=== PATIENT | male | born 1950 | race Two or more races ===

== ENCOUNTER 2021-01-14 13:26 | Inpatient (IN) | payer OTHER ==
[~2021-01-14] VITALS: Ht 162.6 cm; Wt 82.1 kg
[2021-01-14] MEDS ORDERED: IV NS 0.9% 1,000 ML BAG IV ONE ×2 (13:30→15:00)
[2021-01-14] MEDS ORDERED: IBUP-1955 PO (14:01)
[2021-01-14] MEDS ORDERED: ASPI-1420 PO (14:01)
[2021-01-14] MEDS ORDERED: METF-442 PO (14:01)
[2021-01-14] MEDS ORDERED: MELO-107 PO (14:01)
[2021-01-14] MEDS ORDERED: SIMV-46 PO (14:01)
[2021-01-14] MEDS ORDERED: LOSA25TA27 PO (14:01)
[2021-01-14 14:12] LABS: BASOPHILS # (AUTO) 0.1 /CMM (0.0-0.2); BASOPHILS % (AUTO) 0.6 % (0.0-2.0); EOSINOPHILS % (AUTO) 0.8 % (0.0-6.0); HEMATOCRIT 38 % (39-51); HEMOGLOBIN 12.6 g/dL (13.5-17.5); LYMPHOCYTES # (AUTO) 0.4 /CMM (0.8-4.8); LYMPHOCYTES % (AUTO) 3.9 % (20.0-44.0); MEAN CORPUSCULAR HGB CONC 33 g/dl (31.0-36.0); MEAN CORPUSCULAR VOLUME 88 fL (80-96); MONOCYTES # (AUTO) 0.5 /CMM (0.1-1.30); MONOCYTES % (AUTO) 5.5 % (2.0-12.0); NEUTROPHILS # (AUTO) 8.3 /CMM (1.8-8.9); NEUTROPHILS % (AUTO) 89.2 % (43.0-81.0); PLATELET COUNT (AUTO) 216 /CMM (150-450); RED BLOOD CELL COUNT(AUTO) 4.35 MIL/uL (4.5-6.0); WHITE BLOOD COUNT (AUTO) 9.3 K/uL (4.3-11.0)
[2021-01-14 14:19] LABS: CALCIUM, SERUM 8.4 mg/dL (8.5-10.1); CARBON DIOXIDE 20 mmol/L (21-32); CHLORIDE 104 mmol/L (98-107); CREATININE 1.3 mg/dL (0.6-1.3); GLUCOSE 185 mg/dL (74-106); POTASSIUM 4.6 mmol/L (3.5-5.1); SODIUM SERUM 138 mmol/L (136-145); UREA NITROGEN, BLOOD 22 mg/dL (7-18)
[2021-01-14 14:22] LABS: ALANINE AMINOTRANSFERASE 29 U/L (12-78); ALBUMIN 3.2 g/dL (3.4-5.0); ALKALINE PHOSPHATASE 132 U/L (46-116); ASPARTATE AMINOTRANSFERASE 30 U/L (15-37); BILIRUBIN,DIRECT 0.1 mg/dL (0.0-0.2); BILIRUBIN,TOTAL 0.5 mg/dL (0.2-1.0); TOTAL PROTEIN, SERUM 7.7 g/dL (6.4-8.2)
[2021-01-14 14:56] LABS: BILIRUBIN,URINE NEGATIVE (NEGATIVE); COLOR,URINE YELLOW (YELLOW); LEUKOCYTE ESTERASE ,URINE NEGATIVE (NEGATIVE); NITRITE, URINE NEGATIVE (NEGATIVE); PH,URINE 7.5 (5.0-8.0); PROTEIN,URINE NEGATIVE (NEGATIVE); UGLUCOSE 100 MG/DL mg/dL (NEGATIVE); UROBILINOGEN,URINE 0.2 EU/dL (0.2)
[2021-01-14] MEDS ORDERED: LEVOFLOXACIN 750 MG /D5W 150ML 150 ML IV ONE ×2 (15:00→15:04)
[2021-01-14] MEDS ORDERED: ACETAMINOPHEN ES 500 MG TABLET ONE (15:25)
[2021-01-14] MEDS ORDERED: ACETAMINOPHEN ES 500 MG TABLET PO ONE (15:30)
[2021-01-14 17:36] VITALS: BP 92/56
[2021-01-14] MEDS ORDERED: DEXTROSE 50%-WATER 50 ML DISP.SYRIN IV PRN (19:30)
[2021-01-14] MEDS ORDERED: ONDANSETRON HCL/PF 4 MG/2 ML VIAL IVP PRN (19:30)
[2021-01-14] MEDS ORDERED: Z GUARD REMEDY 2 OZ OINT TP PRN (19:30)
[2021-01-14 20:00] VITALS: BP 129/81
[2021-01-14] MEDS: ACETAMINOPHEN 325 MG TABLET PO PRN (20:24)
[2021-01-14] MEDS: CEFTRIAXONE 1 G in IV D5W 50 ML IV SCH (20:25)
[2021-01-14] MEDS: ENOXAPARIN SODIUM 40 MG/0.4 ML DISP.SYRIN SQ SCH ×2 (20:26→20:46)
[2021-01-14] MEDS: VANCOMYCIN HCL 0.75 GM in IV D5W 250 ML IV SCH (21:12)
[2021-01-14] MEDS: IV NS 0.9% 1,000 ML IV PRN (21:31)
[2021-01-14] MEDS: INSULIN REGULAR, HUMAN 100 UNIT/ML 3 ML VIAL SQ PRN (21:51)
[2021-01-14] MEDS: BLOOD SUGAR DIAGNOSTIC 1 EACH STRIP IN SCH (21:51)
[2021-01-15] VITALS: BP 116/62
[2021-01-15] MEDS: ACETAMINOPHEN 325 MG TABLET PO PRN ×2 (02:35→19:41)
[2021-01-15 04:00] VITALS: BP 95/62
[2021-01-15 06:39] LABS: BASOPHILS % (AUTO) 0.4 % (0.0-2.0); HEMATOCRIT 36 % (39-51); HEMOGLOBIN 12.3 g/dL (13.5-17.5); LYMPHOCYTES # (AUTO) 0.5 /CMM (0.8-4.8); LYMPHOCYTES % (AUTO) 8.8 % (20.0-44.0); MEAN CORPUSCULAR HGB CONC 34 g/dl (31.0-36.0); MEAN CORPUSCULAR VOLUME 86 fL (80-96); MONOCYTES # (AUTO) 0.4 /CMM (0.1-1.30); MONOCYTES % (AUTO) 7.2 % (2.0-12.0); NEUTROPHILS # (AUTO) 5.2 /CMM (1.8-8.9); NEUTROPHILS % (AUTO) 83.6 % (43.0-81.0); PLATELET COUNT (AUTO) 182 /CMM (150-450); RED BLOOD CELL COUNT(AUTO) 4.21 MIL/uL (4.5-6.0); WHITE BLOOD COUNT (AUTO) 6.2 K/uL (4.3-11.0)
[2021-01-15 07:06] LABS: ALBUMIN 2.9 g/dL (3.4-5.0); BILIRUBIN,TOTAL 0.7 mg/dL (0.2-1.0); CALCIUM, SERUM 7.9 mg/dL (8.5-10.1); CREATININE 1.2 mg/dL (0.6-1.3); MAGNESIUM 1.6 mg/dL (1.8-2.4); PHOSPHORUS 2.9 mg/dL (2.5-4.9); POTASSIUM 3.7 mmol/L (3.5-5.1); TOTAL PROTEIN, SERUM 7.5 g/dL (6.4-8.2)
[2021-01-15 07:19] LABS: THYROID STIMULATING HORMONE 0.811 uIU/mL (0.358-3.74)
[2021-01-15 08:00] VITALS: BP 90/50
[2021-01-15] MEDS: BLOOD SUGAR DIAGNOSTIC 1 EACH STRIP IN SCH ×4 (08:18→21:43)
[2021-01-15] MEDS: INSULIN REGULAR, HUMAN 100 UNIT/ML 3 ML VIAL SQ PRN ×4 (08:43→21:14)
[2021-01-15] MEDS: LOSARTAN POTASSIUM 25 MG TABLET PO SCH (08:58)
[2021-01-15] MEDS: VANCOMYCIN HCL 0.75 GM in IV D5W 250 ML IV SCH ×2 (08:59→20:23)
[2021-01-15] MEDS: Magnesium 1GM/D5W 100ML PREMIX 100 ML IV SCH ×2 (11:41→12:57)
[2021-01-15 12:00] VITALS: BP 102/59
[2021-01-15 16:00] VITALS: BP 138/77
[2021-01-15] MEDS: SIMVASTATIN 20 MG TABLET PO SCH (17:42)
[2021-01-15] MEDS: CEFTRIAXONE 1 G in IV D5W 50 ML IV SCH (19:35)
[2021-01-15] MEDS: IV NS 0.9% 1,000 ML IV PRN (19:36)
[2021-01-15 20:00] VITALS: BP 109/56
[2021-01-15] MEDS: ENOXAPARIN SODIUM 40 MG/0.4 ML DISP.SYRIN SQ SCH (20:27)
[2021-01-16] VITALS: BP 94/60
[2021-01-16 04:00] VITALS: BP 99/64
[2021-01-16 07:30] LABS: CREATININE 1.1 mg/dL (0.6-1.3); POTASSIUM 3.9 mmol/L (3.5-5.1)
[2021-01-16 08:00] VITALS: BP 108/64
[2021-01-16] MEDS: INSULIN REGULAR, HUMAN 100 UNIT/ML 3 ML VIAL SQ PRN ×4 (08:33→22:12)
[2021-01-16] MEDS: BLOOD SUGAR DIAGNOSTIC 1 EACH STRIP IN SCH ×4 (09:11→22:08)
[2021-01-16] MEDS: VANCOMYCIN HCL 0.75 GM in IV D5W 250 ML IV SCH ×2 (09:14→21:09)
[2021-01-16] MEDS: LOSARTAN POTASSIUM 25 MG TABLET PO SCH (09:15)
[2021-01-16 12:00] VITALS: BP 133/84
[2021-01-16] MEDS: IV NS 0.9% 1,000 ML IV PRN (14:45)
[2021-01-16 16:00] VITALS: BP 148/78
[2021-01-16] MEDS: SIMVASTATIN 20 MG TABLET PO SCH (17:59)
[2021-01-16] MEDS: ACETAMINOPHEN 325 MG TABLET PO PRN (19:32)
[2021-01-16 20:00] VITALS: BP 110/72
[2021-01-16] MEDS: CEFTRIAXONE 1 G in IV D5W 50 ML IV SCH (20:16)
[2021-01-16] MEDS: ENOXAPARIN SODIUM 40 MG/0.4 ML DISP.SYRIN SQ SCH (21:00)
[2021-01-17] MEDS: IV NS 0.9% 1,000 ML IV PRN (05:31)
[2021-01-17 05:59] LABS: BASOPHILS % (AUTO) 0.8 % (0.0-2.0); EOSINOPHILS % (AUTO) 1.3 % (0.0-6.0); HEMATOCRIT 36 % (39-51); LYMPHOCYTES # (AUTO) 0.6 /CMM (0.8-4.8); LYMPHOCYTES % (AUTO) 13.8 % (20.0-44.0); MEAN CORPUSCULAR HGB CONC 34 g/dl (31.0-36.0); MEAN CORPUSCULAR VOLUME 86 fL (80-96); MONOCYTES # (AUTO) 0.4 /CMM (0.1-1.30); MONOCYTES % (AUTO) 9.2 % (2.0-12.0); NEUTROPHILS # (AUTO) 3.5 /CMM (1.8-8.9); NEUTROPHILS % (AUTO) 74.9 % (43.0-81.0); PLATELET COUNT (AUTO) 165 /CMM (150-450); RED BLOOD CELL COUNT(AUTO) 4.16 MIL/uL (4.5-6.0); WHITE BLOOD COUNT (AUTO) 4.7 K/uL (4.3-11.0)
[2021-01-17 06:30] LABS: CALCIUM, SERUM 7.8 mg/dL (8.5-10.1); MAGNESIUM 1.8 mg/dL (1.8-2.4); PHOSPHORUS 2.9 mg/dL (2.5-4.9); POTASSIUM 3.9 mmol/L (3.5-5.1)
[2021-01-17] MEDS: INSULIN REGULAR, HUMAN 100 UNIT/ML 3 ML VIAL SQ PRN ×4 (06:40→21:45)
[2021-01-17] MEDS: BLOOD SUGAR DIAGNOSTIC 1 EACH STRIP IN SCH ×4 (06:41→21:40)
[2021-01-17] MEDS: ACETAMINOPHEN 325 MG TABLET PO PRN (07:05)
[2021-01-17 08:00] VITALS: BP 111/61
[2021-01-17] MEDS: LOSARTAN POTASSIUM 25 MG TABLET PO SCH (08:49)
[2021-01-17] MEDS: VANCOMYCIN HCL 0.75 GM in IV D5W 250 ML IV SCH ×2 (08:50→21:18)
[2021-01-17 12:00] VITALS: BP 114/68
[2021-01-17 16:00] VITALS: BP 124/75
[2021-01-17] MEDS: SIMVASTATIN 20 MG TABLET PO SCH (17:33)
[2021-01-17] MEDS: CEFTRIAXONE 1 G in IV D5W 50 ML IV SCH (19:49)
[2021-01-17 20:00] VITALS: BP 144/76
[2021-01-17] MEDS: ENOXAPARIN SODIUM 40 MG/0.4 ML DISP.SYRIN SQ SCH (21:39)
[2021-01-18] VITALS: BP 144/76
[2021-01-18] MEDS: IV NS 0.9% 1,000 ML IV PRN ×2 (01:55→17:27)
[2021-01-18 04:00] VITALS: BP 127/68
[2021-01-18 06:20] LABS: BASOPHILS % (AUTO) 0.6 % (0.0-2.0); EOSINOPHILS % (AUTO) 3.5 % (0.0-6.0); HEMATOCRIT 36 % (39-51); LYMPHOCYTES % (AUTO) 21.9 % (20.0-44.0); MEAN CORPUSCULAR HGB CONC 34 g/dl (31.0-36.0); MEAN CORPUSCULAR VOLUME 86 fL (80-96); MONOCYTES # (AUTO) 0.4 /CMM (0.1-1.30); MONOCYTES % (AUTO) 10.1 % (2.0-12.0); NEUTROPHILS # (AUTO) 2.8 /CMM (1.8-8.9); NEUTROPHILS % (AUTO) 63.9 % (43.0-81.0); PLATELET COUNT (AUTO) 183 /CMM (150-450); RED BLOOD CELL COUNT(AUTO) 4.16 MIL/uL (4.5-6.0); WHITE BLOOD COUNT (AUTO) 4.3 K/uL (4.3-11.0)
[2021-01-18 06:44] LABS: CALCIUM, SERUM 8.2 mg/dL (8.5-10.1); CREATININE 0.9 mg/dL (0.6-1.3); MAGNESIUM 1.8 mg/dL (1.8-2.4); POTASSIUM 3.8 mmol/L (3.5-5.1)
[2021-01-18] MEDS: BLOOD SUGAR DIAGNOSTIC 1 EACH STRIP IN SCH ×4 (07:58→21:58)
[2021-01-18 08:00] VITALS: BP 143/82
[2021-01-18] MEDS: VANCOMYCIN HCL 0.75 GM in IV D5W 250 ML IV SCH ×2 (09:03→21:10)
[2021-01-18] MEDS: LOSARTAN POTASSIUM 25 MG TABLET PO SCH (09:04)
[2021-01-18] MEDS: INSULIN REGULAR, HUMAN 100 UNIT/ML 3 ML VIAL SQ PRN ×4 (09:04→22:00)
[2021-01-18 12:00] VITALS: BP 138/80
[2021-01-18 16:00] VITALS: BP 143/77
[2021-01-18] MEDS: SIMVASTATIN 20 MG TABLET PO SCH (17:27)
[2021-01-18 20:00] VITALS: BP 123/71
[2021-01-18] MEDS: CEFTRIAXONE 1 G in IV D5W 50 ML IV SCH (20:10)
[2021-01-18] MEDS: ENOXAPARIN SODIUM 40 MG/0.4 ML DISP.SYRIN SQ SCH (21:11)
[2021-01-19] VITALS: BP 123/71
[2021-01-19 04:00] VITALS: BP 136/74
[2021-01-19 06:24] LABS: BASOPHILS % (AUTO) 0.6 % (0.0-2.0); EOSINOPHILS % (AUTO) 3.8 % (0.0-6.0); HEMATOCRIT 34 % (39-51); HEMOGLOBIN 11.4 g/dL (13.5-17.5); LYMPHOCYTES # (AUTO) 0.9 /CMM (0.8-4.8); LYMPHOCYTES % (AUTO) 21.3 % (20.0-44.0); MEAN CORPUSCULAR HGB CONC 34 g/dl (31.0-36.0); MEAN CORPUSCULAR VOLUME 85 fL (80-96); MONOCYTES # (AUTO) 0.5 /CMM (0.1-1.30); MONOCYTES % (AUTO) 11.6 % (2.0-12.0); NEUTROPHILS # (AUTO) 2.7 /CMM (1.8-8.9); NEUTROPHILS % (AUTO) 62.7 % (43.0-81.0); PLATELET COUNT (AUTO) 189 /CMM (150-450); RED BLOOD CELL COUNT(AUTO) 3.94 MIL/uL (4.5-6.0); WHITE BLOOD COUNT (AUTO) 4.3 K/uL (4.3-11.0)
[2021-01-19 06:44] LABS: CALCIUM, SERUM 8.3 mg/dL (8.5-10.1); CREATININE 0.8 mg/dL (0.6-1.3); MAGNESIUM 1.9 mg/dL (1.8-2.4); PHOSPHORUS 3.1 mg/dL (2.5-4.9); POTASSIUM 3.7 mmol/L (3.5-5.1)
[2021-01-19] MEDS: BLOOD SUGAR DIAGNOSTIC 1 EACH STRIP IN SCH ×2 (07:30→12:25)
[2021-01-19 08:00] VITALS: BP 133/82
[2021-01-19 08:41] VITALS: BP 133/82
[2021-01-19] MEDS: LOSARTAN POTASSIUM 25 MG TABLET PO SCH (08:41)
[2021-01-19] MEDS: VANCOMYCIN HCL 0.75 GM in IV D5W 250 ML IV SCH (08:44)
[2021-01-19] MEDS: INSULIN REGULAR, HUMAN 100 UNIT/ML 3 ML VIAL SQ PRN ×2 (08:48→12:32)
[2021-01-19] MEDS ORDERED: VANC1PIG IV (09:21)
[2021-01-19] MEDS ORDERED: CEFT1FRO2 IV (09:21)
[2021-01-19] MEDS ORDERED: LINE600T13 PO (09:43)
[2021-01-19] MEDS ORDERED: LEVO500T90 PO (09:43)
== END 2021-01-19 14:27 | disposition home health service (06) | DRG 871 ==
LOC: ER 13:28 → TELE1 16:04 → MEDSG1 01-15 08:58
PROVIDERS: ADMIT Nurse Practitioner Acute Care; ATTEND Nurse Practitioner Acute Care
DX: A41.01 Sepsis due to Methicillin susceptible Staphylococcus aureus (principal); N17.0 Acute kidney failure with tubular necrosis; J18.9 Pneumonia, unspecified organism; E87.2 Acidosis; N39.0 Urinary tract infection, site not specified; E78.5 Hyperlipidemia, unspecified; E86.0 Dehydration; I10 Essential (primary) hypertension; Z88.0 Allergy status to penicillin; Z79.82 Long term (current) use of aspirin; Z79.84 Long term (current) use of oral hypoglycemic drugs; Z79.899 Other long term (current) drug therapy; D64.9 Anemia, unspecified; Z20.822 Contact with and (suspected) exposure to COVID-19; M19.90 Unspecified osteoarthritis, unspecified site; B96.89 Other specified bacterial agents as the cause of diseases classified elsewhere; E11.65 Type 2 diabetes mellitus with hyperglycemia; E61.1 Iron deficiency; E66.9 Obesity, unspecified; Z68.31 Body mass index [BMI] 31.0-31.9, adult; E88.09 Other disorders of plasma-protein metabolism, not elsewhere classified
CPT/HCPCS: 36415; 71045-TC; 80048-TC; 80053-TC; 80061-TC; 80076-TC; 80202-TC; 82962-TC; 83540-TC; 83605-TC; 83735-TC; 84100-TC; 84443-TC; 84484-TC; 85025-TC; 85730-TC; 87040-TC; 87081-TC; 87086-TC; 87186-TC; 93307-TC; C9803; G0378; J0696; J1650; J1815; J1956; J3370; J3475; J7030; J7050; J7060; U0003

== ENCOUNTER 2021-08-08 18:19 | Emergency (ER) | payer OTHER, MEDICAID ==
[~2021-08-08] VITALS: Ht 170.2 cm; Wt 81.6 kg
[~2021-08-08 18:19] MED LIST: ASPI-1420 PO; IBUP-1955 PO; LEVO500T90 PO; LINE600T13 PO; LOSA25TA27 PO; MELO-107 PO; METF-442 PO; SIMV-46 PO
[2021-08-08] MEDS ORDERED: LIDOCAINE 1% INJ 50 ML MDV IJ ONE (23:18)
[2021-08-09] MEDS ORDERED: SULF1TAB48 PO (00:26)
[2021-08-09] MEDS ORDERED: IBUP-1953 PO (00:27)
[2021-08-09 00:33] VITALS: BP 149/81
== END 2021-08-09 00:33 | disposition home or self-care (01) ==
LOC: ER 18:20
DX: L02.01 Cutaneous abscess of face (principal); I10 Essential (primary) hypertension; E11.9 Type 2 diabetes mellitus without complications; Z88.0 Allergy status to penicillin; Z60.2 Problems related to living alone; Z79.899 Other long term (current) drug therapy; Z79.82 Long term (current) use of aspirin; Z79.84 Long term (current) use of oral hypoglycemic drugs
CPT/HCPCS: 99284; J3490